=== PATIENT | male | born 1955 | race Caucasian/White ===

== ENCOUNTER 2017-08-05 22:07 | Emergency (ER) | payer MEDICAID, MEDICARE, OTHER ==
[~2017-08-05] VITALS: Ht 193 cm; Wt 65.8 kg
[2017-08-05] MEDS ORDERED: AUGMENTIN 875 MG TAB (AMOXICILLIN/CLAVULANATE) PO STA (22:14)
[2017-08-05] MEDS ORDERED: TETANUS,DIPTH,PERTUSS P/F (BOOSTRIX) 0.5 ML VIAL IM ONE (22:15)
--- NOTE | 2017-08-05 22:22 | ED Integumentary General ---
General Chief Complaint: Bite-Animal/Human/Insect Stated Complaint: DOG BITE Source: patient Exam Limitations: no limitations History of Present Illness Time seen by provider: 22:11 Initial Comments Patient presents to ER by EMS with chief complaint that just prior to arrival he was trying to break up his 2 dogs from fighting and one of them bit the distal inch of his third left hand digit off. He brought in with him. EMS reports they established an IV given him 50 mg of fentanyl and put a dry dressing over the wound. Patient denies any allergies and he does take trazodone , duloxetine and morphine for fibromyalgia. Patient states he has not had a tetanus shot in over 5 years. He says the rabies shots and the dogs were up-to- date and he has paperwork at home. He does not wish to contact the police. Allergies and Home Medications Allergies Coded Allergies: No Known Drug Allergies (Unverified , 08/05/17) Constitutional: No chills, No fever, No malaise EENTM: No ear discharge, No ear pain Respiratory: No cough Cardiovascular: No chest pain, No palpitations Gastrointestinal: No abdominal pain, No nausea, No vomiting Musculoskeletal: see HPI, joint pain Skin: see HPI Past Jkikbmg-Nkxjpu-Utnewk Hx Patient Social History Alcohol Use: Regular Use Alcohol Beverage of Choice: Wine Recreational Drug Use: Yes Drug of Choice: marijuana Smoking Status: Never a Smoker Recent Foreign Travel: No Contact w/Someone Who Travel: No Physical Exam Vital Signs Vital Sign - Last 12Hours 08/05/17 22:15 Temp 97.7 Pulse 110 Resp 16 B/P (MAP) 146/105 (119) Pulse Ox 93 O2 Delivery Room Air Capillary Refill : General Appearance: WD/WN, mild distress HEENT: PERRL/EOMI, pharynx normal Cardiovascular: normal peripheral pulses, regular rate, rhythm Respiratory: no respiratory distress, no accessory muscle use Gastrointestinal: non tender, soft Extremities: normal capillary refill, other (third digit on the left hand missing the distal phalanx and a dry gauze dressing in place.) Neurologic/Psychiatric: no motor/sensory deficits, alert, normal mood/affect, oriented x 3 Laceration Repair : Wound Location: Upper Extremities (third finger) Other Wound Location Amputation of distal phalanx with 5 cm laceration on the radial/dorsal side of the third finger. Wound's Depth, Shape: bone, sub Q, tendon Wound Explored: foreign body removed (hair) Irrigated w/ Saline (ccs): 250 Betadine Prep?: Yes (after scrubbing thoroughly with chlorhexidine soap water) Anesthesia: 1% Lidocaine Volume Anesthetic (ccs): 18 Suture: Ethlion Suture Size: 2-0 Number of Sutures: 10 Sterile Dressing Applied?: Yes Progress Finger block applied using lidocaine 1% without epinephrine had to be reapplied 1. When the patient was numb the wounds were thoroughly explored, flushed and scrubbed with gauze impregnated with chlorhexidine soap water and then soaked with Betadine for 10 minutes. The patient was then draped in a usual sterile fashion and cleaned again with chlorhexidine soap water and a linear laceration was stitched with interrupted sutures. There were 5 6-0 Prolene stitches long linear length and then 5 stitches approximating the dorsal and palmar sides of the distal remains of the skin from where his distal phalanx was of the third digit. 4 applying the 5 2-0 Ethilon stitches along the distal phalanx we used the Ronger to remove some loose tissue to undermine the skin so that we could approximate them easily and without much tension. Patient tolerated this procedure well. Wound was hemostatic and a sterile dressing was applied. Progress On the fourth digit same procedure apply ice and there was a 2 cm linear laceration over the second knuckle that was closed with 3 2-0 Ethilon stitches interrupted. There was a V-shaped flap on the distal portion of his fourth finger dorsal side that was closed with one corner stitch and 4 interrupted 6-0 Prolene stitches. Wounds were thoroughly explored, cleaned with chlorhexidine soap water gauze, flushed with sterile saline and soaked with Betadine prior to stitching. Patient tolerated the procedure well. Progress/Results/Core Measures Results/Orders My Orders Orders - JAX CASTAÑEDA Finger(S) (08/05/17 22:14) Dipht,Pertuss(Acell),Tet Adult (Boostrix (08/05/17 22:15) Amoxicillin/Clavulanate Tablet (Augmenti (08/05/17 22:14) Fentanyl Injection (Sublimaze Injection (08/05/17 22:30) Lidocaine 1% Injection (Xylocaine 1% Inj (08/05/17 22:30) Lidocaine 1% (Xylocaine 1%) (08/05/17 22:25) Fentanyl Injection (Sublimaze Injection (08/06/17 00:30) Rx-Hydrocodone/Apap 5-325 Mg (Rx-Vicodin (08/06/17 00:30) Medications Given in ED Current Medications Medications Dose Ordered Sig/Abbie Route Start Time Stop Time Status Last Admin Dose Admin Diphtheria/ Tetanus/Acell Pertussis 0.5 ml ONCE ONCE IM 08/05/17 22:15 08/05/17 22:19 DC 08/05/17 22:31 0.5 ML Fentanyl Citrate 50 mcg ONCE ONCE IVP 08/05/17 22:30 08/05/17 22:31 DC 08/05/17 22:31 50 MCG Lidocaine HCl 50 ml STK-MED ONCE .ROUTE 08/05/17 22:25 08/05/17 22:29 DC 08/05/17 22:32 50 ML Vital Signs/I&O Vital Sign - Last 12Hours 08/05/17 22:15 Temp 97.7 Pulse 110 Resp 16 B/P (MAP) 146/105 (119) Pulse Ox 93 O2 Delivery Room Air Progress Note : Time: 22:22 Progress Note Pulse ox the hand and some chlorhexidine soap water and get an x-ray looking for retained foreign body. We'll give him a tetanus shot and a dose of Augmentin for antibiotic prophylaxis and discussed the case with orthopedic surgery. Diagnostic Imaging Diagonstic Imaging: Xray Plain Films/CT/US/NM/MRI: hand Comments No foreign debris seen on x-ray however there is distal phalanx fragment remaining in the third digit as well as fracture of the distal portion of the second phalanx of that third digit. Reviewed: Reviewed by Me Consults Consults : Consulting Physician: LANDRY MASON DO Consults Notes Discussed the case with orthopedics as well as imaging and findings. He is okay with the Augmentin and he would recommend rupturing out the soft tissue and bone fragment to make enough space to approximate the skin and suture closed. Follow-up tomorrow in the clinic and they will direct him to the appropriate orthopedic surgeon. Departure Impression Impression: Primary Impression: Dog bite Qualified Codes: W54.0XXA - Bitten by dog, initial encounter Additional Impression: Traumatic amputation of fingertip Qualified Codes: S68.129A - Partial traumatic metacarpophalangeal amputation of unspecified finger, initial encounter Disposition: 01 HOME, SELF-CARE Condition: Improved Departure-Patient Inst. Decision time for Depature: 00:35 Referrals: MARK REA MD (PCP/Family) Primary Care Physician Patient Instructions: Animal Bites (DC) Add. Discharge Instructions: Keep the wounds clean with regular soap water. Apply a thin layer of Vaseline over the area where the stitches are and change the dressing daily or if it becomes soiled. Tomorrow morning at [address] at [phone] for an appointment this week or early next week to have your hands examined by the hand surgeon. If you're having swelling or bleeding keep your hand elevated above the level of your heart and apply direct pressure using gauze over the site of bleeding. You may also use ice packs for 10 minutes at a time for swelling and Tylenol 1000 mg or ibuprofen 800 mg every 8 hours as needed. If this does not stop your pain you may also use the hydrocodone one to 2 tablets every 6 hours as needed for pain. If you begin to develop fevers, nausea, chills , discoloration of the hand you should return to the ER for evaluation. You can also follow up with your primary care physician if you need help with pain management. Tomorrow obtain the antibiotics from the pharmacy and start taking them one tablet twice a day with food to completion. All discharge instructions reviewed with patient and/or family. Voiced understanding. Scripts Amoxicillin/Potassium Clav (Augmentin 875-125 Tablet) 1 Each Tablet 1 EACH PO BID for 5 Days, #10 TAB 0 Refills Prov: JAX CASTAÑEDA 08/06/17 Hydrocodone/Acetaminophen (Hydrocodon-Acetaminoph 7.5-325) 1 Each Tablet 1-2 EACH PO Q6H Y for BREAKTHROUGH PAIN, #20 TAB 0 Refills Prov: JAX CASTAÑEDA 08/06/17 Work/School Note: Work Release Form Date Seen in the Emergency Department: Aug 06, 2017 Return to Work: Aug 10, 2017 Restrictions: Need Release from Doctor Other Restrictions Listed Below: Do not use left hand until released by orthopedic surgeon. Copy Copies To 1: LANDRY MASON DO Copies To 2: MARK REA MD, TITUS J Aug 05, 2017 22:22
[2017-08-05] MEDS ORDERED: LIDOCAINE 1% INJ 50 ML (XYLOCAINE) VIAL ONE (22:25)
[2017-08-05] MEDS ORDERED: LIDOCAINE 1% INJ 20 ML (XYLOCAINE) VIAL INJ ONE (22:30)
[2017-08-05] MEDS ORDERED: fentaNYL INJECTION 100 MCG/2 ML AMP IVP ONE (22:30)
[2017-08-06] MEDS ORDERED: RX-HYDROCODONE/APAP 5/325 MG #4 TAB PK PO PRN (00:30)
[2017-08-06] MEDS ORDERED: fentaNYL INJECTION 100 MCG/2 ML AMP IVP ONE (00:30)
[2017-08-06] MEDS ORDERED: HYDR-3816 PO (00:39)
[2017-08-06] MEDS ORDERED: AMOX-358 PO (00:39)
[2017-08-06 00:54] VITALS: BP 143/73
--- NOTE | 2017-08-06 06:44 | Diagnostic Imaging Report ---
INDICATION: Bit by dog, laceration. TECHNIQUE: Single view hand with 2 views left middle finger at 10:28 PM. CORRELATION STUDY: None FINDINGS: There is amputation of the distal middle finger essentially at the level of the distal interphalangeal joint. Small bone fragments do remain in and around the distal interphalangeal joint. Soft tissue amputation is also present. Overlying dressing material is noted. Remainder of the left hand appears to be intact. Multifocal degenerative changes with narrowing to the interphalangeal joint. Advanced degenerative changes to the radial aspect of the wrist. IMPRESSION: 1. Soft tissue and bony amputation essentially at the level of the distal interphalangeal joint of the middle finger. Small bone fragments do remain in this area. Dictated by: Dictated on workstation # [id number]
== END 2017-08-06 00:54 | disposition home or self-care (01) ==
LOC: EDUNIT# 22:07 → ER 22:09
DX: S68.113A Complete traumatic metacarpophalangeal amputation of left middle finger, initial encounter (principal); F12.10 Cannabis abuse, uncomplicated; Z23 Encounter for immunization; W54.0XXA Bitten by dog, initial encounter
CPT/HCPCS: 12042; 73140; 90715

== ENCOUNTER 2019-06-12 15:44 | Emergency (ER) | payer MEDICARE ==
[~2019-06-12] VITALS: Ht 193 cm; Wt 108.9 kg
[~2019-06-12 15:44] MED LIST: AMOX-358 PO; HYDR-34 PO
[2019-06-12 16:28] LABS: BASOPHILS % (AUTO) 0 % (0-10); EOSINOPHILS % (AUTO) 1 % (0-10); HEMATOCRIT 43 % (40-54); HEMOGLOBIN 14.7 G/DL (13.3-17.7); LYMPHOCYTES # (AUTO) 1.3 X 10^3 (1.0-4.0); LYMPHOCYTES % (AUTO) 21 % (12-44); MEAN CORPUSCULAR HEMOGLOBIN 32 PG (25-34); MEAN CORPUSCULAR HGB CONC 34 G/DL (32-36); MEAN CORPUSCULAR VOLUME 95 FL (80-99); MEAN PLATELET VOLUME 9.8 FL (7.4-10.4); MONOCYTES # (AUTO) 0.6 X 10^3 (0.0-1.0); MONOCYTES % (AUTO) 9 % (0-12); NEUTROPHILS # (AUTO) 4.4 X 10^3 (1.8-7.8); NEUTROPHILS % (AUTO) 69 % (42-75); PLATELET COUNT 307 10^3/uL (130-400); RED CELL DISTRIBUTION WIDTH 12.7 % (10.0-14.5); WHITE BLOOD COUNT 6.3 10^3/uL (4.3-11.0)
[2019-06-12] MEDS ORDERED: KETOROLAC 30 MG/ML VIAL IVP ONE (16:30)
[2019-06-12] MEDS ORDERED: fentaNYL INJECTION 100 MCG/2 ML AMP IVP ONE (16:30)
--- NOTE | 2019-06-12 16:38 | ED Lower Extremity ---
General Chief Complaint: Lower Extremity Stated Complaint: R LEG PAIN Nursing Triage Note: Pt to triage via ED w/c by friend with c/o Rt hip and Rt knee pain. Pt reports upon rise this am, he began to experience "burning" pain. Pt reports her was advised to have Rt hip replacement @ [facility] approx x2 years ago and did not return for care. Pt reports decreased ambulation and inability to bear weight on Rt lower extremity. Denies numbness, tingling, fever, or chills. Nursing Sepsis Screen: No Definite Risk Source: patient Exam Limitations: no limitations History of Present Illness Date Seen by Provider: Jun 12, 2019 Time Seen by Provider: 16:35 Initial Comments To ER with reports of right hip and knee pain and general right leg pain. This was severe upon awakening this morning, no preceding injury. He has some chronic pain in his right hip and knee and and was in fact told he needed a hip and knee replacement 2 years ago, never had that done. States that he was formerly on morphine but got himself off of that 2 years ago. That was for fibromyalgia. He denies fevers or chills, just severe pain in the knee and hip he is from [facility] to here by private vehicle by one of his friends who lives here. Onset: just prior to arrival Severity: moderate Pain/Injury Location: right hip, right leg, right knee Method of Injury: unknown Modifying Factors: Worse With Movement Allergies and Home Medications Allergies Coded Allergies: No Known Drug Allergies (Unverified , 08/05/17) Home Medications Amoxicillin/Potassium Clav 1 Each Tablet, 1 EACH PO BID Prescribed by: JAX CASTAÑEDA on 08/06/1738 Hydrocodone Bit/Acetaminophen 1 Each Tablet, 1-2 EACH PO Q6H PRN for BREAKTHROUGH PAIN Prescribed by: JAX CASTAÑEDA on 08/06/1738 Patient Home Medication List Home Medication List Reviewed: Yes Review of Systems Constitutional: see HPI EENTM: see HPI Respiratory: no symptoms reported Cardiovascular: no symptoms reported Genitourinary: no symptoms reported Musculoskeletal: no symptoms reported Skin: no symptoms reported Psychiatric/Neurological: No Symptoms Reported Past Glybwhy-Ccbayg-Elwzfg Hx Patient Social History Alcohol Use: Rarely Uses Number of Drinks Today: 0 Alcohol Beverage of Choice: Wine Recreational Drug Use: No Drug of Choice: marijuana Smoking Status: Never a Smoker 2nd Hand Smoke Exposure: No Recent Foreign Travel: No Contact w/Someone Who Travel: No Recent Infectious Disease Expo: No Recent Hopitalizations: No Immunizations Up To Date Tetanus Booster (TDap): Unknown Seasonal Allergies Seasonal Allergies: Yes Past Medical History Surgeries: Yes (hydrocele, cataracts) Respiratory: No Cardiac: No Neurological: No Genitourinary: No Gastrointestinal: No Musculoskeletal: Yes Osteoporosis, Fibromyalgia Endocrine: No HEENT: No Cancer: No Psychosocial: No Integumentary: No Blood Disorders: No Physical Exam Vital Signs Vital Signs - First Documented 06/12/19 15:57 Temp 36.7 Pulse 104 Resp 18 B/P (MAP) 192/102 (132) Pulse Ox 96 O2 Delivery Room Air Capillary Refill : Less Than 3 Seconds Height, Weight, BMI Height: 6'4.00" Weight: 145lbs. oz. 65.765564na; 29.00 BMI Method:Stated General Appearance: WD/WN, no apparent distress HEENT: PERRL/EOMI, normal ENT inspection Neck: non-tender, full range of motion ( tetrahydrocannabinol) Respiratory: no respiratory distress, no accessory muscle use Hips: bilateral hip non-tender, bilateral hip normal inspection, bilateral hip normal range of motion Legs: bilateral leg non-tender, bilateral leg normal inspection, bilateral leg normal range of motion; right leg pain Knees: bilateral knee non-tender, bilateral knee normal inspection, bilateral knee normal range of motion; right knee pain, right knee other (erythema or palpable effusion to the knee.) Ankles: bilateral ankle non-tender, bilateral ankle normal inspection, bilateral ankle normal range of motion Feet: bilateral foot non-tender, bilateral foot normal inspection, bilateral foot normal range of motion Neurologic/Psychiatric: alert, normal mood/affect, oriented x 3 Skin: normal color, warm/dry Procedures/Interventions Suture Size: 2-0 Progress/Results/Core Measures Results/Orders Lab Results Laboratory Tests Test 06/12/19 16:15 Range/Units White Blood Count 6.3 4.3-11.0 10^3/uL Red Blood Count 4.54 4.35-5.85 10^6/uL Hemoglobin 14.7 13.3-17.7 G/DL Hematocrit 43 40-54 % Mean Corpuscular Volume 95 80-99 FL Mean Corpuscular Hemoglobin 32 25-34 PG Mean Corpuscular Hemoglobin Concent 34 32-36 G/DL Red Cell Distribution Width 12.7 10.0-14.5 % Platelet Count 307 130-400 10^3/uL Mean Platelet Volume 9.8 7.4-10.4 FL Neutrophils (%) (Auto) 69 42-75 % Lymphocytes (%) (Auto) 21 12-44 % Monocytes (%) (Auto) 9 0-12 % Eosinophils (%) (Auto) 1 0-10 % Basophils (%) (Auto) 0 0-10 % Neutrophils # (Auto) 4.4 1.8-7.8 X 10^3 Lymphocytes # (Auto) 1.3 1.0-4.0 X 10^3 Monocytes # (Auto) 0.6 0.0-1.0 X 10^3 Eosinophils # (Auto) 0.0 0.0-0.3 10^3/uL Basophils # (Auto) 0.0 0.0-0.1 10^3/uL Sodium Level 142 135-145 MMOL/L Potassium Level 4.0 3.6-5.0 MMOL/L Chloride Level 104 98-107 MMOL/L Carbon Dioxide Level 22 21-32 MMOL/L Anion Gap 16 H 5-14 MMOL/L Blood Urea Nitrogen 20 H 7-18 MG/DL Creatinine 0.88 0.60-1.30 MG/DL Estimat Glomerular Filtration Rate > 60 BUN/Creatinine Ratio 23 Glucose Level 91 70-105 MG/DL Calcium Level 9.4 8.5-10.1 MG/DL Corrected Calcium 8.5-10.1 MG/DL Total Bilirubin 0.6 0.1-1.0 MG/DL Aspartate Amino Transf (AST/SGOT) 36 H 5-34 U/L Alanine Aminotransferase (ALT/SGPT) 41 0-55 U/L Alkaline Phosphatase 58 40-136 U/L C-Reactive Protein High Sensitivity 0.02 0.00-0.50 MG/DL Total Protein 8.4 H 6.4-8.2 GM/DL Albumin 4.6 H 3.2-4.5 GM/DL My Orders Orders - FREDERICK ALNCASTER [employer]IC[employer] Cbc With Automated Diff (06/12/19 16:22) Comprehensive Metabolic Panel (06/12/19 16:22) Ua Culture If Indicated (06/12/19 16:22) Ed Iv/Invasive Line Start (06/12/19 16:22) Hs C Reactive Protein (06/12/19 16:22) Blood Culture (06/12/19 16:22) Fentanyl Injection (Sublimaze Injection (06/12/19 16:30) Ketorolac Injection (Toradol Injection) (06/12/19 16:30) Hydrocodone/Apap 5/325 Tablet (Lortab 5 (06/12/19 17:15) Clonidine Tablet (Catapres Tablet) (06/12/19 17:15) Orphenadrine Injection (Norflex Injectio (06/12/19 17:45) Drug Screen Stat (Urine) (06/12/19 17:42) Ct Pelvis Wo (06/12/19 17:43) Medications Given in ED Current Medications Medications Dose Ordered Sig/Abbie Route Start Time Stop Time Status Last Admin Dose Admin Acetaminophen/ Hydrocodone Bitart 1 tab ONCE ONCE PO 06/12/19 17:15 06/12/19 17:16 DC 06/12/19 17:13 1 TAB Clonidine HCl 0.1 mg ONCE ONCE PO 06/12/19 17:15 06/12/19 17:16 DC 06/12/19 17:13 0.1 MG Fentanyl Citrate 75 mcg ONCE ONCE IVP 06/12/19 16:30 06/12/19 16:31 DC 06/12/19 16:30 75 MCG Ketorolac Tromethamine 15 mg ONCE ONCE IVP 06/12/19 16:30 06/12/19 16:31 DC 06/12/19 16:30 15 MG Orphenadrine Citrate 60 mg ONCE ONCE IV 06/12/19 17:45 06/12/19 17:46 DC 06/12/19 17:48 60 MG Vital Signs/I&O 06/12/19 15:57 Temp 36.7 Pulse 104 Resp 18 B/P (MAP) 192/102 (132) Pulse Ox 96 O2 Delivery Room Air Blood Pressure Mean: 132 POS Departure Communication (Admissions) He was unable to lay flat for the x-ray. As such she was not done. We will order Norflex. Advised him I won't be giving any additional opiates until pathology is found. We will attempt a CT of the pelvis because now his knee pain seems to be less bothersome and most of the pain seems focused in the right anterior groin. Impression Primary Impression: Arthralgia Qualified Codes: M25.551 - Pain in right hip Disposition: 01 HOME, SELF-CARE Condition: Stable Departure-Patient Inst. Decision time for Depature: 18:42 Referrals: SANDHYA CREWS MD NO,LOCAL PHYSICIAN (PCP) Primary Care Physician JOSE ANTONIO FRANKS MD, ROBERT F DO ZAFUTA, MICHAEL P MD Patient Instructions: ARTHRALGIA Add. Discharge Instructions: 1. Return to ER for any concerns 2. Follow-up with your doctor next week All discharge instructions reviewed with patient and/or family. Voiced understanding. Scripts Prednisone (Prednisone) 20 Mg Tab 40 MG PO DAILY, #6 TAB 0 Refills Prov: FREDERICK LANCASTER APRN 06/12/19 FREDERICK LANCASTER APRN Jun 12, 2019 16:38 POS
[2019-06-12 16:48] LABS: ALANINE AMINOTRANSFERASE 41 U/L (0-55); ALBUMIN 4.6 GM/DL (3.2-4.5); ALKALINE PHOSPHATASE 58 U/L (40-136); BILIRUBIN,TOTAL 0.6 MG/DL (0.1-1.0); BUN/CREATININE RATIO 23; CALCIUM 9.4 MG/DL (8.5-10.1); CARBON DIOXIDE 22 MMOL/L (21-32); CHLORIDE 104 MMOL/L (98-107); CREATININE SERUM 0.88 MG/DL (0.60-1.30); GFR ESTIMATED > 60; GLUCOSE 91 MG/DL (70-105); SODIUM 142 MMOL/L (135-145); TOTAL PROTEIN 8.4 GM/DL (6.4-8.2)
[2019-06-12] MEDS ORDERED: cloNIDine 0.1 MG (CATAPRES) TAB PO ONE (17:15)
[2019-06-12] MEDS ORDERED: HYDROcodone/APAP 5 MG/325 MG (LORTAB) TAB PO ONE (17:15)
[2019-06-12] MEDS ORDERED: ORPHENADRINE 60 MG/2 ML (NORFLEX) AMP IV ONE (17:45)
[2019-06-12] MEDS ORDERED: PRD20T PO (18:43)
[2019-06-12] MEDS ORDERED: RX-HYDROCODONE/APAP 5/325 MG #4 TAB PK PO PRN (18:45)
--- NOTE | 2019-06-12 18:52 | Diagnostic Imaging Report ---
PROCEDURE: CT pelvis without contrast. TECHNIQUE: Multiple contiguous axial images were obtained through the pelvis without the use of intravenous contrast. Sagittal and coronal reformations were performed. Auto Exposure Controls were utilized during the CT exam to meet ALARA standards for radiation dose reduction. INDICATION: Right hip pain. Evaluate for fracture. COMPARISON: None FINDINGS: No acute fracture or dislocation is seen in the pelvis and bilateral hips. Moderate to severe degenerative changes are present in the bilateral hips, right greater than left, with joint space narrowing, marginal osteophytes, and subchondral sclerosis and cyst formation. There is grade 1 anterolisthesis of L5 on S1. The included soft tissues are unremarkable. IMPRESSION: 1. No acute fracture or dislocation in the pelvis and bilateral hips. 2. Moderate to severe osteoarthritis in the hips, right greater than left. 3. Grade 1 anterolisthesis of L5 on S1. Dictated by: Dictated on workstation # [id number]
--- NOTE | 2019-06-12 18:53 | NUR ---
REPORT TO MARTINEZ BOUDREAUX
[2019-06-12 18:56] VITALS: BP 140/101
== END 2019-06-12 19:01 | disposition home or self-care (01) ==
LOC: EDUNIT# 15:44 → ER 15:45
DX: M25.551 Pain in right hip (principal); M25.561 Pain in right knee; M79.7 Fibromyalgia
CPT/HCPCS: 36415; 72192; 80053; 85025; 86141; 87040; 96374; 96375